=== PATIENT | male | born 1955 | race American Indian/Alaskan Native ===

== ENCOUNTER 2022-04-16 05:52 | Observation (INO) | payer BC, MEDICARE ==
--- NOTE | 2022-04-11 10:33 | Anesthesia Consultation ---
Anesthesia Consult and Med Hx Date of service: 04/16/22 - Airway Anesthetic Teeth Evaluation: Good ROM Head & Neck: Adequate Mental/Hyoid Distance: Adequate Mallampati Class: Class III Intubation Access Assessment: Possibly Difficult - Pulmonary Exam CTA: Yes - Cardiac Exam Cardiac Exam: RRR - Pre-Operative Health Status ASA Pre-Surgery Classification: ASA2 Proposed Anesthetic Plan: General - Pulmonary Hx Smoking: No (quit 40yrs ago) Hx Respiratory Symptoms: No - Cardiovascular System Hx Hypertension: Yes Hx Heart Attack/AMI: No - Central Nervous System CVA: No - Endocrine Hx Renal Disease: No Hx Liver Disease: No Hx Insulin Dependent Diabetes: No Hx Non-Insulin Dependent Diabetes: No Hx Thyroid Disease: No - Other Systems Hx Cancer: Yes (s/p prostatectomy) - Additional Comments Anesthesia Medical History Comments: No hx anesthetic complications.
[2022-04-11 10:38] LABS: BUN/Creatinine Ratio 15; Blood Urea Nitrogen 18 mg/dL (9-20); Calcium 9.2 mg/dL (8.4-10.2); Hemolysis Index 31
[2022-04-11 11:06] LABS: Hematocrit 43.4 % (35.5-45.6); Hemoglobin 14.4 gm/dl (11.8-15.2); Mean Corpuscular HGB Conc 33 % (32-34); Mean Corpuscular Volume 92 fl (84-94); Platelet Count 206 K/mm3 (140-440); Red Blood Count 4.73 M/mm3 (3.65-5.03); Red Cell Distribution Width 13.7 % (13.2-15.2)
[2022-04-16] MEDS ORDERED: LACTATED RINGERS 1,000 ML IV SCH (06:00)
[2022-04-16] MEDS ORDERED: ACETAMINOPHEN 500 MG TAB PO SCH (06:00)
[2022-04-16] MEDS ORDERED: GABAPENTIN 300 MG CAP PO NR (06:00)
[2022-04-16] MEDS ORDERED: MIDAZOLAM 2 MG/2 ML INJ IV NR (06:00)
[2022-04-16] MEDS ORDERED: SUCCINYLCHOLINE CHLORIDE 200 MG/10 ML INJ MDV ONE (07:16)
[2022-04-16] MEDS ORDERED: LIDOCAINE PF 100 MG/5 ML (CARDIAC SYRINGE) IV ONE (07:16)
[2022-04-16] MEDS ORDERED: ONDANSETRON 4 MG/2 ML INJ ONE (07:16)
[2022-04-16] MEDS ORDERED: dexAMETHasone 20 MG/5 ML VIAL ONE (07:16)
[2022-04-16] MEDS ORDERED: propofoL 200 MG/20 ML VIAL IV ONE (07:16)
[2022-04-16] MEDS ORDERED: fentaNYL 250 MCG/5 ML INJ ONE (07:16)
[2022-04-16] MEDS ORDERED: VANCOMYCIN/NS 1 GM/250 ML 1 GM/250 ML BAG IV SCH (07:30)
--- NOTE | 2022-04-16 07:38 | Anesthesia Day of Surgery ---
Anesthesia Day of Surgery - Day of Surgery Patient Examined: Yes Patient H&P Reviewed: Yes Patient is NPO: Yes
[2022-04-16] MEDS ORDERED: MIDAZOLAM 2 MG/2 ML INJ ONE (07:39)
[2022-04-16] MEDS ORDERED: rifAMPin 600 MG VIAL ONE (07:44)
[2022-04-16] MEDS ORDERED: BUPIVACAINE/PF (0.5%) 5 MG/1 ML 30 ML VIAL INFILTRATI ONE (07:44)
[2022-04-16] MEDS ORDERED: SODIUM CHLORIDE P/F VIAL 10 ML 10 ML ONE (07:45)
[2022-04-16] MEDS ORDERED: SODIUM CHLORIDE 0.9% 500 ML 500 ML ONE (07:45)
[2022-04-16] MEDS ORDERED: NEOMY 40 MG/POLYMYXIN B 200,000 UNITS/ML (GU) AMPULE IR ONE ×2 (07:45→09:00)
[2022-04-16] MEDS ORDERED: ceFAZolin/STERILE WATER 2 GM/20 ML SYRINGE IV NR (08:00)
[2022-04-16] MEDS ORDERED: PHENYLEPHRINE 10 MG/1 ML INJ SDV ONE (08:35)
[2022-04-16] MEDS ORDERED: ePHEDrine SULFATE 50 MG/1 ML INJ ONE (08:36)
[2022-04-16] MEDS ORDERED: GENTAMICIN/NS 80 MG/100 ML 100 ML IV SCH (09:00)
[2022-04-16] MEDS ORDERED: ONDANSETRON 4 MG/2 ML INJ IV PRN ×2 (09:00→11:00)
[2022-04-16] MEDS ORDERED: HYDROmorphone 0.5 MG/0.5 ML INJ IV PRN ×2 (09:00)
[2022-04-16] MEDS ORDERED: SODIUM CHLORIDE 0.9% P/F 10 ML VIAL INFILTRATI ONE (09:01)
[2022-04-16] MEDS ORDERED: rifAMPin 600 MG VIAL IV ONE (09:01)
[2022-04-16] MEDS ORDERED: SODIUM CHLORIDE 0.9% 500 ML IVPB IRRIGATION ONE (09:01)
[2022-04-16] MEDS ORDERED: SODIUM CHLORIDE 0.9% IRR 1,500 ML BOTTLE IR ONE (09:01)
--- NOTE | 2022-04-16 10:12 | Short Stay Summary ---
Short Stay Documentation Date of service: 04/16/22 - History H&P: obtained from office - Allergies and Medications Current Medications: Allergies No Known Allergies Allergy (Verified 04/10/22 16:02) Home Medications Medication Instructions Recorded Confirmed Last Taken Type Lisinopril/Hydrochlorothiazide 1 tab PO DAILY 11/24/14 04/10/22 12/06/14 05:00 History [Zestoretic 20-12.5 mg] Active Medications Acetaminophen (Acetaminophen 500 Mg Tab) 1,000 mg PO PREOP KIERAN Stop: 04/16/22 21:00 Cefazolin Sodium (Cefazolin/Sterile Water 2 Gm/20 Ml Syringe) 2 gm IV PREOP NR Stop: 04/16/22 15:00 Gabapentin (Gabapentin 300 Mg Cap) 300 mg PO PREOP NR Stop: 04/16/22 21:00 Hydromorphone HCl (Hydromorphone 0.5 Mg/0.5 Ml Inj) 0.25 mg IV Q10MIN PRN PRN Reason: Pain, Moderate (4-6) Stop: 04/16/22 17:00 Hydromorphone HCl (Hydromorphone 0.5 Mg/0.5 Ml Inj) 0.5 mg IV Q10MIN PRN PRN Reason: Pain , Severe (7-10) Stop: 04/16/22 17:00 Lactated Ringer's (Lactated Ringers) 1,000 mls @ 100 mls/hr IV DIRECT KIERAN Stop: 04/16/22 23:59 Vancomycin HCl (Vancomycin/Ns 1 Gm/250 Ml) 1 gm in 250 mls @ 167.007 mls/hr IV PREOP KIERAN; Protocol Stop: 04/16/22 14:00 Gentamicin Sulfate/Sodium Chloride (Gentamicin/Ns 80 Mg/100 Ml) 100 mls @ 200 mls/hr IV ONCE@0900 KIERAN; Protocol Stop: 04/16/22 20:00 Midazolam HCl (Midazolam 2 Mg/2 Ml Inj) 2 mg IV PREOP NR Stop: 04/16/22 21:00 Ondansetron HCl (Ondansetron 4 Mg/2 Ml Inj) 4 mg IV ONCE PRN PRN Reason: Nausea And Vomiting Stop: 04/16/22 17:00 - Brief post op/procedure progress note Date of procedure: 04/16/22 Pre-op diagnosis: ed Post-op diagnosis: same Procedure: ipp (22cm coloplast) Anesthesia: KORI Surgeon: BRAD ORDAZ Estimated blood loss: minimal Pathology: none Condition: stable - Hospital course Hospital course: pt has norco & bactrim at home 8am---removed bennett---drainage at glans---pressure dressing noon---removed dressing- no bleeding---dc home - Disposition Condition at discharge: Stable Short Stay Discharge Plan Follow up with: BRAD ORDAZ MD [Staff Physician] - 7 Days ERICK PARK MD [Primary Care Provider] - 7 Days
--- NOTE | 2022-04-16 10:57 | Consultation ---
History of Present Illness - Reason for Consult Consult date: 04/16/22 Medical management, hypertension - History of Present Illness Patient is a 66-year-old male with history of hypertension, prostate cancer status post radical prostatectomy. Patient was admitted for penile prosthesis placement. Medicine was consulted for medical management of hypertension. Patient currently takes lisinopril/hydrochlorothiazide 20mg-12.5mg daily. He reports episodes of hypotension with associated dizziness. He denies headache, visual changes, syncope, chest pain and lower extremity edema. Other review systems are negative. Past History Past Medical History: hypertension, other (Prostate cancer status post radical prostatectomy) Past Surgical History: Other (Prostatectomy) Social history: no significant social history Family history: no significant family history Medications and Allergies Allergies Allergy/AdvReac Type Severity Reaction Status Date / Time No Known Allergies Allergy Verified 04/10/22 16:02 Home Medications Medication Instructions Recorded Confirmed Last Taken Type Lisinopril/Hydrochlorothiazide 1 tab PO DAILY 11/24/14 04/10/22 12/06/14 05:00 History [Zestoretic 20-12.5 mg] Active Meds: Active Medications Acetaminophen (Acetaminophen 500 Mg Tab) 1,000 mg PO PREOP KIERAN Stop: 04/16/22 21:00 Acetaminophen (Acetaminophen 325 Mg Tab) 650 mg PO Q4H PRN PRN Reason: Pain MILD(1-3)/Fever >100.5/WATTERS Hydrocodone Bitart/Acetaminophen (Hydrocodone/Acetaminophen 5-325 Mg Tab) 2 each PO Q6H PRN PRN Reason: Pain, Moderate (4-6) Gabapentin (Gabapentin 300 Mg Cap) 300 mg PO PREOP NR Stop: 04/16/22 21:00 Hydromorphone HCl (Hydromorphone 0.5 Mg/0.5 Ml Inj) 0.25 mg IV Q10MIN PRN PRN Reason: Pain, Moderate (4-6) Stop: 04/16/22 17:00 Hydromorphone HCl (Hydromorphone 0.5 Mg/0.5 Ml Inj) 0.5 mg IV Q10MIN PRN PRN Reason: Pain , Severe (7-10) Stop: 04/16/22 17:00 Lactated Ringer's (Lactated Ringers) 1,000 mls @ 100 mls/hr IV DIRECT KIERAN Stop: 04/16/22 23:59 Vancomycin HCl (Vancomycin/Ns 1 Gm/250 Ml) 1 gm in 250 mls @ 167.007 mls/hr IV PREOP KIERAN; Protocol Stop: 04/16/22 14:00 Gentamicin Sulfate/Sodium Chloride (Gentamicin/Ns 80 Mg/100 Ml) 100 mls @ 200 mls/hr IV ONCE@0900 KIERAN; Protocol Stop: 04/16/22 20:00 Sodium Chloride (Nacl 0.45% 1000 Ml) 1,000 mls @ 100 mls/hr IV DIRECT KIERAN Midazolam HCl (Midazolam 2 Mg/2 Ml Inj) 2 mg IV PREOP NR Stop: 04/16/22 21:00 Miscellaneous Medication (Lisinopril/Hydrochlorothiazide [Zestoretic 20-12.5 Mg]) 1 tab PO DAILY KIERAN Morphine Sulfate (Morphine 4 Mg/1 Ml Inj) 4 mg IV Q4H PRN PRN Reason: Pain , Severe (7-10) Naloxone HCl (Naloxone 0.4 Mg/1 Ml Inj) 0.1 mg IV Q2MIN PRN PRN Reason: Res Rate </= 8 or 02 SAT < 92% Ondansetron HCl (Ondansetron 4 Mg/2 Ml Inj) 4 mg IV ONCE PRN PRN Reason: Nausea And Vomiting Stop: 04/16/22 17:00 Ondansetron HCl (Ondansetron 4 Mg/2 Ml Inj) 4 mg IV Q8H PRN PRN Reason: Nausea And Vomiting Sodium Chloride (Sodium Chloride 0.9% 10 Ml Flush Syringe) 10 ml IV BID KIERAN Sodium Chloride (Sodium Chloride 0.9% 10 Ml Flush Syringe) 10 ml IV PRN PRN PRN Reason: LINE FLUSH Zolpidem Tartrate (Zolpidem 5 Mg Tab) 5 mg PO QHS PRN PRN Reason: Insomnia Review of Systems Constitutional: no weight loss, no weight gain, no fever, no chills, no sweats, no anorexia, no fatigue, no poor appetite, no chronic pain Ears, nose, mouth and throat: deferred Cardiovascular: no chest pain, no orthopnea, no palpitations, no rapid/irregular heart beat, no edema, no syncope, no shortness of breath, no dyspnea on exertion Respiratory: no cough, no congestion, no wheezing, no pain on inspiration Gastrointestinal: no abdominal pain, no nausea, no vomiting, no change in bowel habits Genitourinary Male: erectile dysfunction, no dysuria, no hematuria, no urinary frequency, no urinary hesitancy, no incontinence Musculoskeletal: no neck stiffness, no shooting arm pain, no arm numbness/tingling, no leg numbness/tingling, no frequent falls Integumentary: deferred Neurological: no weakness, no numbness, no seizures, no syncope, no ataxia, no double vision, no loss of vision Endocrine: no cold intolerance, no heat intolerance, no polyphagia, no polydipsia, no polyuria Exam - Physical Exam Narrative exam: GENERAL: Well-developed well-nourished. In no acute distress. HEENT: Normocephalic. Atraumatic. NECK: Supple. CHEST/LUNGS: CTAB on room air HEART/CARDIOVASCULAR: RRR. No murmur, rubs or gallops appreciated. ABDOMEN: +BS. NT/ND. SKIN: No rashes noted. NEURO: No focal motor deficit. Follows all commands and is ambulatory. MUSCULOSKELETAL: No joint effusion EXTREMITIES: No cyanosis, clubbing or edema. PSYCH: Cooperative. - Constitutional Vitals: Temp Pulse Resp BP Pulse Ox 97.3 F L 71 12 134/82 100 04/16/22 10:02 04/16/22 10:30 04/16/22 10:30 04/16/22 10:30 04/16/22 10:30 Results - Labs CBC & Chem 7: 04/11/22 10:12 04/11/22 10:12 Assessment and Plan #Hypertension -Patient taking lisinopril/hydrochlorothiazide (20-12.5mg) at home -Blood pressure controlled per chart review -will restart HCTZ at 12.5mg -patient should follow up with PCP for medication changes given his symptoms when taking full dose #Erectile dysfunction #History of prostate cancer status post radical prostatectomy -s/p penile prosthesis placement -Management per primary #Advanced care planning -Disease education conducted, care plan discussed, diagnoses discussed, prognosis discussed, and patient acknowledges understanding with care plan -Time: +30 min
[2022-04-16] MEDS ORDERED: SODIUM CHLORIDE 0.45% 1000 ML 1,000 ML IV SCH (11:00)
[2022-04-16] MEDS ORDERED: NALOXONE 0.4 MG/1 ML INJ IV PRN (11:00)
[2022-04-16] MEDS ORDERED: ACETAMINOPHEN 325 MG TAB PO PRN (11:00)
--- NOTE | 2022-04-16 11:21 | Operative Report ---
DATE OF SURGERY: 04/16/2022 PREOPERATIVE DIAGNOSIS: Erectile dysfunction. POSTOPERATIVE DIAGNOSIS: Erectile dysfunction. PROCEDURE: Insertion of inflatable penile prosthesis (22 cm Coloplast Titan) intracorporal injection of pharmacologic agent. SURGEON: Kennedy Tate MD ANESTHESIA: General. ESTIMATED BLOOD LOSS: Minimal. FLUIDS: Crystalloid. COMPLICATIONS: No complications. INDICATIONS: This patient is a 66-year-old gentleman known to our service with a history of erectile dysfunction and prostate cancer. His prostate cancer has been cured with no signs of disease. He has tried different nonsurgical options for erectile dysfunction that have been refractory. We discussed various treatment options. I encouraged him to review the video, which it is unclear if he reviewed or contacted our patient advocate but he agrees to proceed with surgical intervention. DESCRIPTION OF PROCEDURE: The patient was taken to the operative suite, placed in a supine position. After adequate general anesthesia, he was prepped and draped in a sterile fashion. Alexander catheter was placed on the operative field. Dilute Marcaine was injected into the penis, 20 mL. Metal Afton retractor was used for exposure. Connie colored urine could be appreciated. Transscrotal incision was made with a Bovie. Sharp dissection was taken down to the corporal bodies. Stays were secured on the metal retractor for exposure. A 2-0 Vicryl stay suture was placed in the corporotomies. Corporotomies were made. Gentle dissection was performed. Measurements were taken. A total of 22 cm was noted. Therefore, a 22 cm Titan device was used, 125 mL reservoir was prepped, placed in the retropubic space via the right external ring, 110 mL of saline was placed in the reservoir. The cylinders were prepped, placed in the corporal bodies with aid of a Seth needle. Corporotomies were closed with a 2-0 Vicryl in a running fashion. Pump was placed in the dependent portion of the scrotum. The pump and the reservoir were connected with the quick click connection system. Insufflation revealed an excellent cosmetic appearance. The pump was secured in a dependent portion of the scrotum with a 2-0 Vicryl pursestring suture. Dartos layer was closed with a 2-0 Vicryl in a running fashion. Skin was closed with a 3-0 Vicryl with interrupted fashion. Collodion was placed in Xeroform gauze. Mummy wrap was placed as well. The patient tolerated the procedure well and was taped to his abdomen. He was extubated and taken to recovery room in stable condition. He has Bactrim and [place] at home. TID: [id number] RECEIPT: [id number] SILVERIO/KYLE
[2022-04-16] MEDS: HYDROcodone/ACETAMINOPHEN 5-325 MG TAB PO PRN (13:03)
--- NOTE | 2022-04-16 15:42 | Post Anesthesia Evaluation ---
- Post Anesthesia Evaluation Patient Participated: Yes Airway Patent: Yes Stable Respiratory Function: Yes Nausea/Vomiting: No Temp > 96.8F: Yes Pain Manageable: Yes Adequeate Hydration: Yes Anesthesia Complications: No Block Receding Appropriately: Not Applicable Patient on Ventilator: No
[2022-04-16] MEDS: MORPHINE 4 MG/1 ML INJ IV PRN ×2 (18:40→22:40)
[2022-04-16] MEDS ORDERED: ZOLPIDEM 5 MG TAB PO PRN (22:00)
[2022-04-17 04:32] VITALS: BP 113/73
[2022-04-17] MEDS: HYDROcodone/ACETAMINOPHEN 5-325 MG TAB PO PRN (08:31)
[2022-04-17] MEDS ORDERED: NON-FORMULARY EACH (Lisinopril/Hydrochlorothiazide [Zestoretic 20-12.5 Mg] 1 EACH Tablet) PO SCH (10:00)
[2022-04-17] MEDS ORDERED: hydroCHLOROthiazide 12.5 MG CAP PO SCH (10:00)
[2022-04-17] MEDS ORDERED: LISINOPRIL 20 MG TAB PO SCH (10:00)
== END 2022-04-17 14:00 | disposition home or self-care (01) ==
LOC: OR 05:52 → 3A 10:12 → EEVIPCON 10:12 → 3A 16:31
PROVIDERS: ADMIT Urology; ATTEND Urology
DX: N52.9 Male erectile dysfunction, unspecified (principal); Z20.822 Contact with and (suspected) exposure to COVID-19; C61 Malignant neoplasm of prostate; I10 Essential (primary) hypertension; N52.31 Erectile dysfunction following radical prostatectomy; Z79.899 Other long term (current) drug therapy; Z98.890 Other specified postprocedural states
CPT/HCPCS: 36415; 54405; 80048; 85027; 86850; 86900; 86901; 96374; 96375; 96376; C1813; G0378; J1100; J1580; J2001; J2250; J2270; J2370; J2405; J2704; J3010; J3370; J3490; J7030; J7040; J7120; U0003; J0330